=== PATIENT | male | born 1975 | race Caucasian/White ===

== ENCOUNTER 2018-03-02 03:45 | Emergency (ER) | payer OTHER ==
[~2018-03-02] VITALS: Ht 172.7 cm; Wt 104.3 kg
[2018-03-02] MEDS ORDERED: PREDNISONE 20 M20 MG PO (04:23)
[2018-03-02] MEDS ORDERED: TRAMADOL 50 MG50 MG PO (04:23)
[2018-03-02 04:45] VITALS: BP 140/67
== END 2018-03-02 04:50 | disposition home or self-care (01) ==
LOC: ER 03:45
DX: M10.072 Idiopathic gout, left ankle and foot (principal)